=== PATIENT | female | born 1985 | race Caucasian/White ===

== ENCOUNTER 2018-07-31 19:04 | Emergency (ER) | payer MEDICAID ==
[~2018-07-31] VITALS: Ht 154.9 cm; Wt 62.9 kg
[~2018-07-31 19:04] MED LIST: CITA20TA9 PO; HYDR-3240 PO; IBUP-1222 PO; OXYC-307 PO
[2018-07-31] MEDS ORDERED: MAALOX/HYOSCYAMINE/LIDOCAINE 45 ML BTL PO ONE (19:30)
[2018-07-31] MEDS ORDERED: PLEASE ENTER HEIGHT AND WEIGHT MC SCH (19:30)
--- NOTE | 2018-07-31 20:07 | NUR ---
First contact w/ pt. Amb w/ steady gait to room. Awaiting lab results. To be medicated per apr. States LUQ/LLQ abd "warm and burning" painx2 days and 1 round of bloody emesis today. States unknown fevers at home. Denies further s/s. Monitoring applied. Call light within reach.
[2018-07-31 20:08] LABS: ALBUMIN 4.3 g/dL (3.4-5.0); ANION GAP 9 mmol/L (5-15); CALCIUM 8.9 mg/dL (8.5-10.1); CHLORIDE 104 mmol/L (98-107)
[2018-07-31 20:11] LABS: BASOPHILS # (AUTO) 0.01 x10^3/uL (0-0.1); BASOPHILS % (AUTO) 0 % (0-1); EOSINOPHILS # (AUTO) 0.06 x10^3/uL (0-0.4); EOSINOPHILS % (AUTO) 1 % (1-7); LYMPHOCYTES # (AUTO) 1.93 x10^3/uL (1-3.4); LYMPHOCYTES % (AUTO) 34 % (22-44); MD NO; MEAN CORPUSCULAR HEMOGLOBIN 30.9 pg (27.0-34.8); MEAN CORPUSCULAR HGB CONC 33.8 g/dL (32.4-35.8); MEAN CORPUSCULAR VOLUME 91.5 fL (80-100); MEAN PLATELET VOLUME 8.7 fL (7.4-10.4); MONOCYTES # (AUTO) 0.32 x10^3/uL (0.2-0.8); MONOCYTES % (AUTO) 6 % (2-9); NEUTROPHILS # (AUTO) 3.44 x10^3/uL (1.8-6.8); NEUTROPHILS % (AUTO) 60 % (42-75); PLATELET COUNT 257 x10^3/uL (130-400); RED BLOOD COUNT 4.96 x10^6/uL (3.82-5.3); RED CELL DISTRIBUTION WIDTH 12.5 % (9.6-15.2)
[2018-07-31] MEDS ORDERED: MAALOX/HYOSCYAMINE/LIDOCAINE 45 ML BTL ONE (20:11)
[2018-07-31 20:12] LABS: ALANINE AMINOTRANSFERASE 21 U/L (12-78); ALKALINE PHOSPHATASE 76 U/L (45-117); BILIRUBIN,TOTAL 0.8 mg/dL (0.2-1.0); CREATININE 0.62 mg/dL (0.55-1.02); TOTAL PROTEIN 7.9 g/dL (6.4-8.2)
--- NOTE | 2018-07-31 20:17 | NUR ---
All results back. Pt up for recheck.
[2018-07-31] MEDS ORDERED: FAMOTIDINE 20 MG TABLET ONE (21:00)
[2018-07-31] MEDS ORDERED: ONDANSETRON ODT 4 MG PO ONE (21:00)
[2018-07-31] MEDS ORDERED: ONDANSETRON ODT 4 MG ONE (21:00)
[2018-07-31] MEDS ORDERED: FAMOTIDINE 20 MG TABLET PO ONE (21:00)
[2018-07-31 21:01] VITALS: BP 129/88
--- NOTE | 2018-07-31 21:11 | NUR ---
Minimal urine output by pt. Walked down to lab. Awaiting lab results.
[2018-07-31 21:21] LABS: CULTURE INDICATED? NO; HCG UR SG 1.025 (1.003-1.030); MICROSCOPIC NOT IND
== END 2018-07-31 21:49 | disposition home or self-care (01) ==
LOC: ED 21:00
DX: K29.01 Acute gastritis with bleeding (principal); R11.2 Nausea with vomiting, unspecified; J45.909 Unspecified asthma, uncomplicated; Z90.49 Acquired absence of other specified parts of digestive tract; Z90.710 Acquired absence of both cervix and uterus
CPT/HCPCS: 36415; 74021; 80053; 81003; 81025; 83690; 85025; 99284; Q0162

== ENCOUNTER 2018-10-29 17:52 | Emergency (ER) | payer MEDICAID ==
[~2018-10-29] VITALS: Ht 154.9 cm; Wt 64.1 kg
[2018-10-29 18:36] VITALS: BP 129/47
--- NOTE | 2018-10-29 19:07 | NUR ---
PT HERE WITH C/O RIGHT FOOT PAIN AFTER DROPPING A CAR BATTERY ON IT, SWELLING AND BRUISING NOTED.
[2018-10-29] MEDS ORDERED: HYDROcodone/APAP 5/325 TABLET ONE (19:22)
[2018-10-29] MEDS ORDERED: HYDROcodone/APAP 5/325 TABLET PO ONE (19:30)
--- NOTE | 2018-10-29 19:54 | NUR ---
Patient/Caregiver given discharge instructions and they have confirmed that they understand the instructions. Patient ambulatory with steady gait.
== END 2018-10-29 19:56 | disposition home or self-care (01) ==
LOC: ED 19:50
DX: S90.31XA Contusion of right foot, initial encounter (principal); X58.XXXA Exposure to other specified factors, initial encounter; Y93.89 Activity, other specified; Y92.009 Unspecified place in unspecified non-institutional (private) residence as the place of occurrence of the external cause; Y99.8 Other external cause status
CPT/HCPCS: 99283